=== PATIENT | female | born 1975 | race American Indian/Alaskan Native ===

== ENCOUNTER 2018-11-23 09:26 | Outpatient (CLI) | payer OTHER ==
--- NOTE | 2018-11-23 10:16 | Mammography Report ---
Bilateral mammogram: No previous studies are available. CAD study utilized. Findings: Predominance adipose tissue bilaterally. Bilateral scattered subcentimeter and centimeter densities. No microcalcification. Benign exam. Impression: Bilateral circumscribed scattered multiple densities. Comparison with previous studies is recommended. If previous studies aren't available bilateral global sonogram advised. BI-RADS CATEGORY: 0 = Needs additional imaging evaluation ACR BI-RADS MAMMOGRAPHIC CODES: 0 = Needs additional imaging evaluation; 1 = Negative; 2 = Benign; 3 = Probably benign; 4 = Suspicious; 5 = Malignant; 6 = Known biopsy-proven malignancy COMMENT: 1. Dense breast tissue, i.e., adenosis, fibrocystic changes, etc., may obscure an underlying neoplasm. 2. Approximately 10% of cancers are not detected with mammography. 3. A negative mammography report should not delay biopsy if a clinically suspicious mass is present. COMMENT: Patient follow-up letters are generated in [employer].
== END 2018-11-23 09:27 | disposition home or self-care (01) ==
LOC: SPVWC 09:26
PROVIDERS: ATTEND Hospitalist
DX: Z12.31 Encounter for screening mammogram for malignant neoplasm of breast (principal)
CPT/HCPCS: 77067